=== PATIENT | male | born 1980 | race Caucasian/White ===

== ENCOUNTER 2016-12-28 19:12 | Emergency (ER) | payer BC, OTHER ==
[~2016-12-28] VITALS: Ht 175.3 cm; Wt 99.8 kg
--- NOTE | 2016-12-28 19:14 | NUR ---
PT AMBULATORY TO ER BED 09 C/O SOB X 2 DAYS. HX OF ASTHMA. PT STATES INHALER NOT HELPING. PLACED ON MONITOR. PT IS [employer]. AWAMOTING MD ROCHA.
--- NOTE | 2016-12-28 19:22 | NUR ---
DR SPAIN AT BEDSIDE FOR EVAL.
[2016-12-28] MEDS ORDERED: predniSONE 20 MG TABLET PO ONE (19:30)
[2016-12-28] MEDS ORDERED: IPRATROPIUM NEB FS 0.5 MG/2.5 ML AMPUL.NEB NEB ONE (19:30)
[2016-12-28] MEDS ORDERED: ALBUTEROL FS 2.5 MG/3 ML VIAL.NEB NEB ONE (19:30)
[2016-12-28] MEDS ORDERED: predniSONE 20 MG TABLET ONE (19:32)
[2016-12-28] MEDS ORDERED: ALBUTEROL FS 2.5 MG/3 ML VIAL.NEB ONE (19:53)
[2016-12-28] MEDS ORDERED: IPRATROPIUM NEB FS 0.5 MG/2.5 ML AMPUL.NEB ONE (19:53)
--- NOTE | 2016-12-28 19:54 | NUR ---
RT AT BEDSIDE FOR BREATHING TREATMENT.
[2016-12-28] MEDS ORDERED: ACETAMINOPHEN 325 MG TABLET PO ONE (20:30)
[2016-12-28] MEDS ORDERED: ACETAMINOPHEN 325 MG TABLET ONE (20:34)
[2016-12-28] MEDS ORDERED: ALBUTEROL FS 2.5 MG/0.5 ML VIAL.NEB NEB ONE (21:00)
--- NOTE | 2016-12-28 21:23 | NUR ---
PT STATES HE WANTS TO GO HOME AND REST. WILL NOT WAIT FOR THE 2ND BREATHING TREATMENT. DR SPAIN MADE AWARE. STILL TACHY, SATTING AT 94% ON RA. PT D/C HOME IN STABLE CONDITION.
[2016-12-28 21:25] VITALS: BP 122/86
== END 2016-12-28 21:28 | disposition home or self-care (01) ==
LOC: ER 19:13
DX: J45.901 Unspecified asthma with (acute) exacerbation (principal); J06.9 Acute upper respiratory infection, unspecified; F17.200 Nicotine dependence, unspecified, uncomplicated
CPT/HCPCS: A4606; Z7610

== ENCOUNTER 2018-12-31 12:04 | Outpatient (CLI) | payer BC, OTHER | END 2018-12-31 23:59 | disposition home or self-care (01) | LOC: RAD 12:04 | PROVIDERS: ATTEND Family Medicine | DX: M19.011 Primary osteoarthritis, right shoulder (principal); M25.562 Pain in left knee; J44.9 Chronic obstructive pulmonary disease, unspecified; Z87.39 Personal history of other diseases of the musculoskeletal system and connective tissue | CPT/HCPCS: 73030-TC; 73562 ==